=== PATIENT | female | born 1935 | race Two or more races ===

== ENCOUNTER 2022-03-14 21:52 | Emergency (ER) | payer BC ==
[~2022-03-14] VITALS: Ht 152.4 cm; Wt 70.8 kg
[2022-03-14] MEDS ORDERED: CRESTOR5 MG (22:08)
[2022-03-14] MEDS ORDERED: ASPIRIN325 MG (22:08)
== END 2022-03-15 01:15 | disposition home or self-care (01) ==
LOC: ER 21:52
DX: R04.0 Epistaxis (principal)